=== PATIENT | female | born 1940 | race Asian ===

== ENCOUNTER 2022-08-17 12:28 | Emergency (ER) | payer MEDICARE, OTHER ==
[~2022-08-17] VITALS: Ht 152.4 cm; Wt 63.6 kg
[2022-08-17] MEDS ORDERED: FOLI-130 PO (12:35)
[2022-08-17] MEDS ORDERED: FERR-82 PO (12:35)
[2022-08-17] MEDS ORDERED: ERGO500054 PO (12:35)
[2022-08-17] MEDS ORDERED: ROSU10TA72 PO (12:35)
[2022-08-17] MEDS ORDERED: DOCU-119 PO (12:35)
[2022-08-17] MEDS ORDERED: LIDOCAINE 5% TRANSDERMAL PATCH TD ONE (14:45)
[2022-08-17] MEDS ORDERED: ACETAMINOPHEN 500 MG TABLET PO ONE (14:45)
[2022-08-17 19:54] VITALS: BP 123/67
== END 2022-08-17 19:54 | disposition home or self-care (01) ==
LOC: EMS 12:32
DX: S00.03XA Contusion of scalp, initial encounter (principal); E04.1 Nontoxic single thyroid nodule; E78.00 Pure hypercholesterolemia, unspecified; Z88.6 Allergy status to analgesic agent; W01.0XXA Fall on same level from slipping, tripping and stumbling without subsequent striking against object, initial encounter; Y93.89 Activity, other specified; Y92.89 Other specified places as the place of occurrence of the external cause; Y99.8 Other external cause status
CPT/HCPCS: 70450; 72100; 72125; 99284